=== PATIENT | female | born 1995 | race Hispanic/Latino ===

== ENCOUNTER 2017-09-01 20:09 | Emergency (ER) | payer OTHER ==
[2017-09-01] MEDS ORDERED: Dexamethasone 4 mg/ml Vial ONE (21:16)
[2017-09-01] MEDS ORDERED: Dexamethasone 4 MG TAB ONE (21:17)
== END 2017-09-01 21:25 | disposition home or self-care (01) ==
LOC: ERS 20:09
DX: J30.9 Allergic rhinitis, unspecified (principal); Z79.899 Other long term (current) drug therapy
CPT/HCPCS: 87081; 87430; 99283; J1100; J8540

== ENCOUNTER 2018-08-11 17:29 | Emergency (ER) | payer OTHER | END 2018-08-11 18:25 | disposition home or self-care (01) | LOC: ERS 17:29 | DX: R19.7 Diarrhea, unspecified (principal) ==

== ENCOUNTER 2018-08-17 11:39 | Emergency (ER) | payer OTHER ==
--- NOTE | 2018-08-17 12:11 | RAD ---
EXAM: XR Ankle Lt 3 View STANDARD PROVIDED CLINICAL HISTORY: Pain FINDINGS: There is no evidence for fracture or other acute osseous abnormality. Alignment appears anatomic. Sara nt spaces appear preserved. Lateral malleolar soft tissue swelling. IMPRESSION: No evidence for an acute osseous abnormality. If there is persistent clinical concern, conservative m anagement and follow-up imaging advised.
[2018-08-17] MEDS ORDERED: Ketorolac Tromethamine 30 MG/ML VIAL ONE (13:44)
== END 2018-08-17 14:02 | disposition home or self-care (01) ==
LOC: ERS 11:39
DX: S93.402A Sprain of unspecified ligament of left ankle, initial encounter (principal); X50.1XXA Overexertion from prolonged static or awkward postures, initial encounter
CPT/HCPCS: 96372; J1885

== ENCOUNTER 2018-10-22 16:16 | Emergency (ER) | payer OTHER, SELFPAY ==
[2018-10-22 17:42] LABS: Pregnancy Test - Urine (BHCG) Negative (Negative); Pregu Control Background? CLEAR/WHITE (CLR/WHITE); Pregu Control Bar Appear? YES (CONTROL BAR); Specific Gravity 1.026 (1.002-1.036)
[2018-10-22] MEDS ORDERED: Ketorolac Tromethamine 30 MG/ML VIAL ONE (18:00)
--- NOTE | 2018-10-22 18:47 | RAD ---
LUMBAR SPINE TWO VIEWS: 10/22/18 HISTORY: Low back pain. FINDINGS: There are five lumbar type vertebrae. Pedicles are intact. Vertebral body heights and alignment are m aintained. No acute fracture or dislocation. Contraceptive metallic device over the uterus. IMPRESSION: No acute osseous abnormalities are demonstrated. POS: BST
--- NOTE | 2018-10-22 18:49 | RAD ---
THORACIC SPINE TWO VIEWS: 10/22/18 HISTORY: Back injury. FINDINGS: There are twelve thoracic type vertebrae. Pedicles are intact. Vertebral body heights and AP alignmen t are maintained. Measured from T6 to T11, there is 26 degree rightward convexed curvature. No acute fracture or disloc ation. IMPRESSION: Rightward convexed scoliotic curvature of the thoracic spine. No acute osseous abnormalities are demo nstrated. POS: BST
== END 2018-10-22 19:04 | disposition home or self-care (01) ==
LOC: ERS 16:16
DX: M54.5 Low back pain (principal); M54.6 Pain in thoracic spine; V43.52XA Car driver injured in collision with other type car in traffic accident, initial encounter
CPT/HCPCS: 72072; 72100; 81025; 96372; J1885